=== PATIENT | female | born 1995 | race Two or more races ===

== ENCOUNTER 2021-12-04 18:27 | Observation (INO) | payer BC ==
[~2021-12-04] VITALS: Ht 152.4 cm; Wt 70.8 kg
[2021-12-04 19:49] LABS: BASOPHILS % 0.5 % (0.0-2.0); EOSINOPHILS % 0.7 % (0.0-5.0); HEMATOCRIT. 34.5 % (36.0-48.0); HEMOGLOBIN. 11.8 g/dL (12.0-16.0); LYMPHOCYTES % 22.8 % (20.0-50.0); MEAN CORPUSCULAR HEMOGLOBIN 29.7 pg (28.0-32.0); MEAN CORPUSCULAR VOLUME 86.5 fL (81.0-99.0); MEAN PLATELET VOLUME 11.2 fl (7.4-10.4); MONOCYTES % 12.4 % (2.0-8.0); NEUTROPHILS % 63.6 % (40.0-76.0); PLATELET 162 x1000/uL (130-400); RED BLOOD CELL COUNT 3.99 mill/uL (4.2-5.4); RED CELL DISTRIBUTION WIDTH 13.2 % (11.6-14.6)
[2021-12-04 20:10] LABS: CHLORIDE 109 mEq/L (98-107)
[2021-12-04 21:37] LABS: CLARITY URINE CLEAR (CLEAR); COLOR URINE YELLOW (YELLOW); KETONES URINE NEGATIVE (NEGATIVE); LEUKOCYTE ESTERASE URINE NEGATIVE (NEGATIVE); NITRITE URINE NEGATIVE (NEGATIVE); OCCULT BLOOD URINE NEGATIVE (NEGATIVE); PH URINE 7.5 (4.5-8.0); PROTEIN URINE NEGATIVE (NEGATIVE); SPECIFIC GRAVITY URINE 1.013 (1.005-1.030)
== END 2021-12-04 23:40 | disposition home or self-care (01) ==
LOC: 8 EST LDRP 18:27
PROVIDERS: ADMIT Obstetrics & Gynecology; ATTEND Obstetrics & Gynecology
DX: O36.8130 Decreased fetal movements, third trimester, not applicable or unspecified (principal); O62.9 Abnormality of forces of labor, unspecified; O99.891 Other specified diseases and conditions complicating pregnancy; M54.9 Dorsalgia, unspecified; Z3A.37 37 weeks gestation of pregnancy
CPT/HCPCS: 36415; 76805; 76818; 80053; 81003; 82239; 82248; 85025; G0378; 59025

== ENCOUNTER 2021-12-14 06:58 | Inpatient (IN) | payer BC ==
[~2021-12-14] VITALS: Ht 152.4 cm; Wt 70.8 kg
[2021-12-14] MEDS ORDERED: METHYLERGONOVINE MALEATE 0.2 MG/ML IM PRN (10:00)
[2021-12-14] MEDS ORDERED: LIDOCAINE HCL 1% 20ML VIAL (Pyxis) INJ INFIL SCH (10:00)
[2021-12-14] MEDS ORDERED: BUTORPHANOL TARTRATE 2 MG/ML VIAL IV PRN (10:00)
[2021-12-14] MEDS ORDERED: LACTATED RINGERS 1,000 ML IV SCH (10:00)
[2021-12-14] MEDS ORDERED: DEXT 5%/LR + PITOCIN 20UNITS/L 1,000 ML IV SCH ×2 (10:00→20:30)
[2021-12-14] MEDS ORDERED: NALOXONE HCL 0.4 MG/ML 1ML VIAL IM PRN (10:00)
[2021-12-14 11:46] LABS: BASOPHILS % 0.2 % (0.0-2.0); EOSINOPHILS % 0.7 % (0.0-5.0); HEMATOCRIT. 36.4 % (36.0-48.0); HEMOGLOBIN. 12.3 g/dL (12.0-16.0); LYMPHOCYTES % 18.9 % (20.0-50.0); MEAN CORPUSCULAR HEMOGLOBIN 29.2 pg (28.0-32.0); MEAN CORPUSCULAR VOLUME 86.5 fL (81.0-99.0); MEAN PLATELET VOLUME 11.6 fl (7.4-10.4); MONOCYTES % 9.3 % (2.0-8.0); NEUTROPHILS % 70.9 % (40.0-76.0); PLATELET 148 x1000/uL (130-400); RED BLOOD CELL COUNT 4.21 mill/uL (4.2-5.4); RED CELL DISTRIBUTION WIDTH 13.2 % (11.6-14.6)
[2021-12-14 11:58] LABS: CLARITY URINE CLEAR (CLEAR); COLOR URINE YELLOW (YELLOW); KETONES URINE NEGATIVE (NEGATIVE); LEUKOCYTE ESTERASE URINE NEGATIVE (NEGATIVE); NITRITE URINE NEGATIVE (NEGATIVE); OCCULT BLOOD URINE NEGATIVE (NEGATIVE); PROTEIN URINE NEGATIVE (NEGATIVE); SPECIFIC GRAVITY URINE 1.011 (1.005-1.030); UROBILINOGEN URINE 0.2 E.U./dL (0.2-1.0)
[2021-12-14] MEDS: LACTATED RINGERS 1,000 ML IV SCH ×2 (11:58→21:23)
[2021-12-14] MEDS: MISOPROSTOL 100MCG TABLET VG SCH ×2 (12:00→18:31)
[2021-12-14 12:07] LABS: INR 0.9; PARTIAL THROMBOPLASTIN TIME 27.6 sec (23.4-31.0); PROTHROMBIN TIME 9.6 sec (9.6-11.0)
[2021-12-14 12:13] LABS: *AMPHETAMINES SCREEN URINE NEGATIVE (NEGATIVE); *BARBITURATES SCREEN URINE NEGATIVE (NEGATIVE); *BENZODIAZEPINES SCREEN URINE NEGATIVE (NEGATIVE); *COCAINE SCREEN URINE NEGATIVE (NEGATIVE); CANNABINOID URINE SCREEN NEGATIVE (NEGATIVE); METHADONE URINE SCREEN NEGATIVE (NEGATIVE); OPIATES URINE SCREEN NEGATIVE (NEGATIVE); PHENCYCLIDINE URINE SCREEN NEGATIVE (NEGATIVE)
[2021-12-14 14:47] LABS: HEPATITIS B SURFACE ANTIGEN NEGATIVE
[2021-12-14] MEDS ORDERED: MINERAL OIL 30ML BOTTLE TOP NR (19:30)
[2021-12-14] MEDS ORDERED: ROPIVACAINE HCL/PF EPIDURAL 200 ML EPI ONE (23:38)
[2021-12-15] MEDS: LACTATED RINGERS 1,000 ML IV SCH (00:10)
[2021-12-15] MEDS ORDERED: PREN1TAB78 PO (03:06)
[2021-12-15] MEDS ORDERED: FERR325T6 PO (03:06)
[2021-12-15] MEDS ORDERED: LANOLIN OINT 7GM TUBE TOP PRN (07:45)
[2021-12-15] MEDS ORDERED: IBUPROFEN 400MG TABLET PO PRN (07:45)
[2021-12-15] MEDS ORDERED: DEXT 5%/LR + PITOCIN 20UNITS/L 1,000 ML IV SCH (07:45)
[2021-12-15] MEDS ORDERED: RHO(D) IMMUNE GLOBULIN 300 MCG/SYR IM PRN (07:45)
[2021-12-15 09:30] VITALS: BP 131/86
[2021-12-15 10:30] VITALS: BP 123/78
[2021-12-15] MEDS: PRENATAL VIT/FE FUMARATE/FA TABLET PO SCH (10:42)
[2021-12-15] MEDS: IBUPROFEN 800MG TABLET PO PRN ×2 (10:42→20:02)
[2021-12-15] MEDS ORDERED: TETANUS, DIPHTHERIA, PERTUSSIS VAC/PF 0.5ML (>10YR OLD) IM ONE (13:15)
[2021-12-15 16:00] VITALS: BP 110/70
[2021-12-15 20:00] VITALS: BP 120/79
[2021-12-15] MEDS: DOCUSATE SODIUM 100MG CAPSULE PO SCH ×2 (20:02→20:12)
[2021-12-15] MEDS ORDERED: DOCUSATE SODIUM 100MG CAPSULE PO SCH (21:00)
[2021-12-16 04:00] VITALS: BP 104/52
[2021-12-16 07:29] LABS: BASOPHILS % 0.3 % (0.0-2.0); HEMATOCRIT. 30.1 % (36.0-48.0); HEMOGLOBIN. 10.1 g/dL (12.0-16.0); LYMPHOCYTES % 18.9 % (20.0-50.0); MEAN CORPUSCULAR HEMOGLOBIN 29.3 pg (28.0-32.0); MEAN CORPUSCULAR VOLUME 87.1 fL (81.0-99.0); MEAN PLATELET VOLUME 11.8 fl (7.4-10.4); MONOCYTES % 7.3 % (2.0-8.0); NEUTROPHILS % 72.5 % (40.0-76.0); PLATELET 146 x1000/uL (130-400); RED BLOOD CELL COUNT 3.46 mill/uL (4.2-5.4); RED CELL DISTRIBUTION WIDTH 13.8 % (11.6-14.6)
[2021-12-16] MEDS: IBUPROFEN 800MG TABLET PO PRN ×2 (07:55→19:24)
[2021-12-16 08:00] VITALS: BP 97/51
[2021-12-16] MEDS: PRENATAL VIT/FE FUMARATE/FA TABLET PO SCH (08:26)
[2021-12-16 16:00] VITALS: BP 105/49
[2021-12-16 20:00] VITALS: BP 104/48
[2021-12-17] MEDS: IBUPROFEN 800MG TABLET PO PRN (04:02)
[2021-12-17 04:33] VITALS: BP 98/55
[2021-12-17 08:00] VITALS: BP 126/74
[2021-12-17] MEDS ORDERED: IBUP-2030 PO (08:02)
[2021-12-17] MEDS: PRENATAL VIT/FE FUMARATE/FA TABLET PO SCH (08:28)
[2021-12-17] MEDS: DOCUSATE SODIUM 100MG CAPSULE PO SCH (08:29)
== END 2021-12-17 11:45 | disposition home or self-care (01) | DRG 805 ==
LOC: 8 EST LDRP 06:58 → OBSVTOIN 06:58 → 8EST 12-15 10:10
PROVIDERS: ADMIT Obstetrics & Gynecology; ATTEND Obstetrics & Gynecology
PROC: 10E0XZZ Delivery of Products of Conception, External Approach (ICD-10-PCS; principal; 2021-12-15)
PROC: 0HQ9XZZ Repair Perineum Skin, External Approach (ICD-10-PCS; 2021-12-15)
PROC: 3E0R3BZ Introduction of Anesthetic Agent into Spinal Canal, Percutaneous Approach (ICD-10-PCS; 2021-12-15)
PROC: 00HU33Z Insertion of Infusion Device into Spinal Canal, Percutaneous Approach (ICD-10-PCS; 2021-12-15)
DX: O26.62 Liver and biliary tract disorders in childbirth (principal); K83.1 Obstruction of bile duct; Z37.0 Single live birth; J45.909 Unspecified asthma, uncomplicated; O69.81X0 Labor and delivery complicated by cord around neck, without compression, not applicable or unspecified; Z20.822 Contact with and (suspected) exposure to COVID-19; O99.52 Diseases of the respiratory system complicating childbirth; O99.03 Anemia complicating the puerperium; O70.0 First degree perineal laceration during delivery; Z3A.39 39 weeks gestation of pregnancy; Z88.0 Allergy status to penicillin
CPT/HCPCS: 36415; 80305; 81003; 85025; 86592; 86703; 86762; 86850; 86900; 87340; 87426; 90715; 99281; G0378; J0595; J2590; J2795